=== PATIENT | male | born 1980 ===

== ENCOUNTER 2019-08-27 23:22 | Emergency (ER) | payer MEDICAID ==
[~2019-08-27] VITALS: Ht 170.2 cm; Wt 75.0 kg
[2019-08-27] MEDS ORDERED: naloxone 2mg/2ml inj IV STA (23:31)
[2019-08-27 23:53] LABS: BASOPHILS % (AUTO) 0.6 % (0-1); EOSINOPHILS # (AUTO) 0.2 X10'3 (0-0.9); EOSINOPHILS % (AUTO) 3.2 % (0-6); HEMATOCRIT 37.2 % (42.0-52.0); HEMOGLOBIN 12.4 g/dl (14.0-17.9); LYMPHOCYTES # (AUTO) 2.8 X10'3 (1.1-4.8); LYMPHOCYTES % (AUTO) 41.1 % (21-51); MEAN CORPUSCULAR HEMOGLOBIN 31.9 PG (27.0-31.0); MEAN CORPUSCULAR HGB CONC 33.2 g/dL (33.0-36.5); MEAN PLATELET VOLUME 8.1 FL (7.4-10.4); MONOCYTES # (AUTO) 0.6 X10'3 (0-0.9); MONOCYTES % (AUTO) 8.8 % (2-12); NEUTROPHILS # (AUTO) 3.2 X10'3 (1.8-7.7); NEUTROPHILS % (AUTO) 46.3 % (42-75); PLATELET COUNT 263 X10'3 (140-440); RED BLOOD COUNT 3.87 X10'6 (4.70-6.10); RED CELL DISTRIBUTION WIDTH 15.1 % (11.5-14.5); WHITE BLOOD COUNT 6.9 X10'3 (4.5-11.0)
[2019-08-27 23:56] LABS: CLARITY,URINE CLEAR (Clear); COLOR,URINE YELLOW (Yellow); GLUCOSE, URINE NEGATIVE (Neg); KETONES,URINE NEGATIVE (Neg); LEUKOCYTE ESTERASE ,URINE NEGATIVE (Neg); NITRITES, URINE NEGATIVE (Neg); OCCULT BLOOD,URINE TRACE-INTACT (Neg); PROTEIN,URINE NEGATIVE (Neg); UROBILINOGEN,URINE 0.2 E.U/dL (0.2-1.0)
[2019-08-28 00:01] LABS: UA COLLECTION TYPE STRAIGHT CATH
[2019-08-28 00:08] LABS: ALANINE AMINOTRANSFERASE 19 U/L (12-78); ALBUMIN 3.2 G/DL (3.4-5.0); ALBUMIN/GLOBULIN RATIO 1.1 (1.1-1.5); ALKALINE PHOSPHATASE 57 IU/L (46-116); ANION GAP 9 (8-16); ASPARTATE AMINO TRANSFERASE 22 U/L (10-37); BILIRUBIN,TOTAL 0.3 MG/DL (0.1-1.0); BLOOD UREA NITROGEN 12 MG/DL (7-18); CALCIUM 7.6 MG/DL (8.5-10.1); CHLORIDE 108 MMOL/L (99-107); ETHANOL 0.284 GM/DL (0.0-0.010); GLUCOSE 97 MG/DL (70-104); SODIUM 143 MMOL/L (135-145); TOTAL CARBON DIOXIDE 26.3 MMOL/L (24-32); eGFR > 90 ML/MIN
[2019-08-28 00:13] LABS: BACTERIA,URINE NONE SEEN /HPF (Neg); MUCUS STRANDS NONE SEEN /LPF (Neg); RBC,URINE NONE SEEN /HPF (0-2); SQUAMOUS EPITHELIAL CELL,UR NONE SEEN /LPF (FEW); WBC,URINE NONE SEEN /HPF (0-4)
[2019-08-28] MEDS ORDERED: potassium 10mEq/100ml NS w/LIDOcaine (10mg/bag) IV SCH (00:35)
[2019-08-28] MEDS ORDERED: potassium Cl 10 mEq/100mL bag IV SCH ×2 (00:45→03:25)
[2019-08-28] MEDS: magnesium 2GM in 50ml NS 50 ML IV SCH ×2 (01:35→01:38)
--- NOTE | 2019-08-28 01:36 | NUR ---
PT TAKEN TO CT SCAN OF HEAD. 3 STAFF ASSISTING , BUT ABLE TO COMPLETE SCAN. PT IHNTERMITTANTLY AWAKENED WHEN SHIFTING HIM OR GIVING IV MED AND WILL MOAN OUT AND MOVE EXTREMITIES THEN WILL GO BACK TO SLEEP. REMAINS EDGAR , HR AROUND 50. BP 96/48. MG AND K INFUSING.
--- NOTE | 2019-08-28 01:42 | NUR ---
REMAINS IN RESTRAINTS WHEN HE IS AWAKENED HE PULLS AT LINES AND SWINGS AT STAFF (BUT EYES ARE CLOSED.
[2019-08-28 02:10] LABS: URINE AMPHETAMINE SCREEN NEGATIVE (Neg); URINE BARBITUATE SCREEN NEGATIVE (Neg); URINE BENZODIAZEPINES SCREEN NEGATIVE (Neg); URINE CANNABINOID SCREEN POSITIVE (Neg); URINE COCAINE SCREEN NEGATIVE (Neg); URINE METHADONE SCREEN NEGATIVE (Neg); URINE OPIATE SCREEN NEGATIVE (Neg); URINE PHENCYCLIDINE SCREEN NEGATIVE (Neg)
--- NOTE | 2019-08-28 02:50 | NUR ---
dr. mohr at bedside for reeval. Pt continues to awaken intermittently and moves around on the bed and groans and growls loudly, then goes back to sleep. Keeps eyes closed during these episodes. Pt with 2nd episode of urinie incontinence. remains a Jono Yu as still unable to state his name. Remains in restraints. CXR just completed and during this pt opened eyes slightly and tried to bite xr tech and grabbed at him.
--- NOTE | 2019-08-28 03:34 | NUR ---
PT RECEIVING 2ND DOSE OF MG AND K IVPB. [employer] OFFICER IN ED AND REPORTED TO [employer] PROFESSOR,EUSE[place], THAT PTS NAME IS PEDRO JENKINS.
--- NOTE | 2019-08-28 05:00 | NUR ---
pt to be moved to room 7 for closer watching.
--- NOTE | 2019-08-28 05:00 | NUR ---
RESTRAINTS REMOVED, BED ALARM PLACED, PT VISIBLE TO STAFF FROM ROOM 7. HR 100, BP 137/46
[2019-08-28] MEDS ORDERED: normal saline 1000ML IV soln IVB ONE (05:45)
--- NOTE | 2019-08-28 05:49 | NUR ---
DR MCINTYRE UPDATED THAT OVER THE PAST HR PTS HR HAS GONE FROM EDGAR (45-55) TO 100-115. NO NEW ORDERS RECEIVED. ANTICIPATE DC ONCE PT AWAKENS MORE AND CAN BE GAIT TESTED.
--- NOTE | 2019-08-28 06:30 | NUR ---
pt resting on his right side, no s/s of respiratory distress, will continue to monitor.
--- NOTE | 2019-08-28 09:46 | NUR ---
PATIENT AXOX4, YANEZ, WOKE UP EASILY. PATIENT OFFERED A RIDE TO THE [facility] AND HE REFUSED. SALINE LOCK DISCONTIUED, SITE CLEAR. PATIENT IS GETTING INTO NEW CLOTHES AT THIS MOMENT. PATIENT PROVIDED BUS PASS. PATIENT IS EATING A SANDWHICH AND DRINKING. PATIENT AMBULATED TO BATHROOM WITH STANDBY ASSIST.
[2019-08-28 09:59] VITALS: BP 144/74
== END 2019-08-28 10:08 | disposition home or self-care (01) ==
LOC: EDBD 23:23 → ER 23:23
DX: F10.929 Alcohol use, unspecified with intoxication, unspecified (principal); R41.82 Altered mental status, unspecified; Y90.9 Presence of alcohol in blood, level not specified
CPT/HCPCS: 36415; 70450; 71045; 80053; 80305; 80320; 81001; 85025; 85610; 96365; 96366; 96375; 99284; J2310; J3475; J3480; J7030; 81003